=== PATIENT | female | born 1995 | race Caucasian/White ===

== ENCOUNTER 2024-02-13 14:41 | Emergency (ER) | payer MEDICAID, OTHER ==
[~2024-02-13] VITALS: Ht 154.9 cm; Wt 34.1 kg
[~2024-02-13 14:41] MED LIST: PHEN-786 PO
[2024-02-13 15:18] VITALS: BP 125/70; PULSE 87; RESP 15; TEMP 98.8; O2SAT 100
== END 2024-02-13 16:01 | disposition left against medical advice (07) ==
LOC: ER 14:42
DX: Z32.01 Encounter for pregnancy test, result positive (principal); Z53.21 Procedure and treatment not carried out due to patient leaving prior to being seen by health care provider
CPT/HCPCS: 99281

== ENCOUNTER 2024-04-27 23:59 | Emergency (ER) | payer MEDICAID ==
[~2024-04-27] VITALS: Ht 154.9 cm; Wt 36.4 kg
[2024-04-28] MEDS ORDERED: HYDROcodone/acetaminophen 5mg/325mg tablet PO ONE (01:25)
[2024-04-28] MEDS: acetaminophen 325mg tablet PO ONE (01:50)
[2024-04-28 02:26] VITALS: BP 105/68; PULSE 86; RESP 16; TEMP 98; O2SAT 99
== END 2024-04-28 02:29 | disposition home or self-care (01) ==
LOC: ER 23:59
DX: S00.83XA Contusion of other part of head, initial encounter (principal); R04.0 Epistaxis; Z79.899 Other long term (current) drug therapy; Y08.89XA Assault by other specified means, initial encounter; Y93.89 Activity, other specified; Y92.89 Other specified places as the place of occurrence of the external cause; Y99.8 Other external cause status
CPT/HCPCS: 70450; 99284

== ENCOUNTER 2025-01-04 06:52 | Emergency (ER) | payer MEDICAID ==
[~2025-01-04] VITALS: Ht 154.9 cm; Wt 38.6 kg
[2025-01-04] MEDS ORDERED: CefTRIAXone 2gm/NS 100ml IVPB 50 ML IV ONE (07:05)
[2025-01-04 08:20] LABS: MEAN CORPUSCULAR HGB CONC 34.2 g/dL (33.0-36.5); NEUTROPHILS % (AUTO) 81.6 % (42-75); RED BLOOD COUNT 4.14 X10'6 (4.20-5.60)
[2025-01-04 08:23] LABS: BASOPHILS % (AUTO) 0.2 % (0-1); EOSINOPHILS % (AUTO) 0 % (0-6); HEMATOCRIT 35.7 % (35.0-45.0); HEMOGLOBIN 12.2 g/dl (12.0-16.0); LYMPHOCYTES # (AUTO) 1.2 X10'3 (1.1-4.8); LYMPHOCYTES % (AUTO) 5.6 % (21-51); MEAN CORPUSCULAR HEMOGLOBIN 29.5 PG (27.0-31.0); MEAN CORPUSCULAR VOLUME 86.2 FL (78-98); MEAN PLATELET VOLUME 7.3 FL (7.4-10.4); MONOCYTES # (AUTO) 2.6 X10'3 (0-0.9); MONOCYTES % (AUTO) 12.6 % (2-12); NEUTROPHILS # (AUTO) 17.1 X10'3 (1.8-7.7); PLATELET COUNT 283 X10'3 (140-440); RED CELL DISTRIBUTION WIDTH 13.7 % (11.5-14.5); WHITE BLOOD COUNT 20.9 X10'3 (4.5-11.0)
[2025-01-04 08:33] LABS: BILIRUBIN,URINE NEGATIVE (Neg); CLARITY,URINE CLEAR (Clear); COLOR,URINE YELLOW (Yellow); GLUCOSE, URINE NEGATIVE (Neg); KETONES,URINE 40 mg/dl (Neg); LEUKOCYTE ESTERASE ,URINE NEGATIVE (Neg); NITRITES, URINE NEGATIVE (Neg); OCCULT BLOOD,URINE TRACE-INTACT (Neg); PROTEIN,URINE TRACE mg/dl (Neg); UROBILINOGEN,URINE 0.2 E.U/dL (0.2-1.0)
[2025-01-04] MEDS: CefTRIAXone 2gm/D5W 50ml BAG 50 ML IV ONE (08:43)
[2025-01-04] MEDS: normal saline 1000ML IV soln IVB ONE (08:43)
[2025-01-04 08:48] LABS: ALANINE AMINOTRANSFERASE 14 U/L (12-78); ALBUMIN 3.1 G/DL (3.4-5.0); ALBUMIN/GLOBULIN RATIO 0.7 (1.1-1.5); ALKALINE PHOSPHATASE 79 IU/L (46-116); ANION GAP 12 (8-16); ASPARTATE AMINO TRANSFERASE 14 U/L (10-37); BILIRUBIN,TOTAL 0.9 MG/DL (0.1-1.0); BLOOD UREA NITROGEN 9 MG/DL (7-18); BUN/CREATININE RATIO 10.5 (10.0-20.0); C-REACTIVE PROTEIN 14.27 MG/DL (0.0-0.5); CALCIUM 8.9 MG/DL (8.5-10.1); CHLORIDE 92 MMOL/L (99-107); CREATININE 0.86 MG/DL (0.40-0.90); GLUCOSE 116 MG/DL (70-104); LIPASE 16 U/L (16-77); MAGNESIUM 1.5 MG/DL (1.5-2.4); SODIUM 134 MMOL/L (135-145); TOTAL CARBON DIOXIDE 29.8 MMOL/L (24-32); TOTAL PROTEIN 7.4 G/DL (6.4-8.2); eCRCL 60 ML/MIN; eGFR 79 ML/MIN
[2025-01-04 08:56] LABS: POTASSIUM 2.7 MMOL/L (3.5-5.1)
[2025-01-04 08:58] LABS: UA COLLECTION TYPE CLN CATCH MIDSTREAM
[2025-01-04 08:59] LABS: BACTERIA,URINE 3+ /HPF (Neg); MUCUS STRANDS MODERATE /LPF (Neg); SQUAMOUS EPITHELIAL CELL,UR MODERATE /LPF (FEW); WBC,URINE 20-30 /HPF (0-4)
[2025-01-04 09:00] LABS: WBC CLUMPS,URINE FEW /HPF (NEGATIVE)
[2025-01-04] MEDS: morphine 4 MG/ML inj SYRINge IV ONE (10:07)
[2025-01-04] MEDS: ondansetron/PF 4mg/2ml inj IV ONE (10:07)
[2025-01-04] MEDS: magnesium sulf-water 2g/50mL 50 ML IV ONE (10:08)
[2025-01-04] MEDS: normal saline 1000ml 1,000 ML IV ONE (10:08)
[2025-01-04] MEDS: POTASSIUM BICARB 20meq eff tab 20 MEQ TABLET.EFF PO ONE ×2 (10:19→12:19)
[2025-01-04] MEDS: potassium bicarbonate/cit acid 25mEq tablet.effervescent PO ONE (10:30)
[2025-01-04 11:23] LABS: URINE HCG NEGATIVE (NEG)
[2025-01-04 11:30] LABS: URINE AMPHETAMINE SCREEN NEGATIVE (Neg); URINE BARBITUATE SCREEN NEGATIVE (Neg); URINE BENZODIAZEPINES SCREEN NEGATIVE (Neg); URINE CANNABINOID SCREEN POSITIVE (Neg); URINE COCAINE SCREEN NEGATIVE (Neg); URINE METHADONE SCREEN NEGATIVE (Neg); URINE OPIATE SCREEN NEGATIVE (Neg); URINE PHENCYCLIDINE SCREEN NEGATIVE (Neg)
[2025-01-04] MEDS: proCHLORperazine 10 MG/2 ml inj IV ONE (11:42)
[2025-01-04] MEDS: acetaminophen 1,000mg/100ml IV 100 ML IV SCH (11:42)
[2025-01-04] MEDS ORDERED: iohexol 300mg/ml 100ml inj. ONE (12:51)
[2025-01-04 13:37] VITALS: TEMP 99
[2025-01-04] MEDS: ringers solution, lacted 1,000 ML IV ONE (13:45)
[2025-01-04 13:47] LABS: ALBUMIN 2.4 G/DL (3.4-5.0); ANION GAP 3 (8-16); BLOOD UREA NITROGEN 8 MG/DL (7-18); BUN/CREATININE RATIO 9.9 (10.0-20.0); CALCIUM 7.5 MG/DL (8.5-10.1); CHLORIDE 94 MMOL/L (99-107); CREATININE 0.81 MG/DL (0.40-0.90); GLUCOSE 113 MG/DL (70-104); POTASSIUM 4.1 MMOL/L (3.5-5.1); SODIUM 129 MMOL/L (135-145); TOTAL CARBON DIOXIDE 32.5 MMOL/L (24-32); eCRCL 64 ML/MIN; eGFR 85 ML/MIN
[2025-01-04] MEDS ORDERED: CEFP100S9 PO (14:17)
[2025-01-04 14:36] VITALS: BP 101/64; PULSE 88; RESP 16; O2SAT 98
== END 2025-01-04 14:48 | disposition home or self-care (01) ==
LOC: ER 06:53
DX: N12 Tubulo-interstitial nephritis, not specified as acute or chronic (principal); R10.31 Right lower quadrant pain; Z87.440 Personal history of urinary (tract) infections
CPT/HCPCS: 36415; 74177; 80048; 80053; 80305; 81001; 81025; 83690; 83735; 85025; 86140; 87077; 87088; 87186; 96361; 96365; 96366; 96368; 96375; 99285; J0131; J0696; J0780; J2270; J2405; J7030; J7120; Q9967; A4615

== ENCOUNTER 2025-02-14 14:46 | Emergency (ER) | payer MEDICAID ==
[~2025-02-14] VITALS: Ht 154.9 cm; Wt 33.9 kg
[~2025-02-14 14:46] MED LIST changes: +CEFP100S9 PO
[2025-02-14 14:50] VITALS: BP 119/79; PULSE 83; RESP 15; O2SAT 100
[2025-02-14 16:24] VITALS: TEMP 99.2
== END 2025-02-14 16:25 | disposition home or self-care (01) ==
LOC: ER 14:47
DX: Z34.01 Encounter for supervision of normal first pregnancy, first trimester (principal); Z79.899 Other long term (current) drug therapy; Z87.442 Personal history of urinary calculi
CPT/HCPCS: 36415; 84702; 99283

== ENCOUNTER 2025-03-29 17:41 | Emergency (ER) | payer MEDICAID ==
[~2025-03-29] VITALS: Ht 154.9 cm; Wt 37.4 kg
[2025-03-29 17:46] VITALS: BP 117/79; PULSE 93; RESP 20; O2SAT 97
--- NOTE | 2025-03-29 18:44 | Physician Documentation ---
History of Present Illness ~ Chief Complaint: Nausea Stated Complaint: COMPLICATIONS Time Seen by MD: 18:44 Primary Medical Doctor: NONE HPI 29-year-old female, 10 weeks presenting with nausea and vomiting She tells me that she has a history of hyperemesis gravidarum with previous pregnancies. In the past, the only medication that help with Zofran. She has been having a lot of morning sickness and nausea. For the past 48 hours she has been having nausea and vomiting and has not been able to keep down much food or fluids. She is not making as much urine as normal. She denies any fevers, chills, abdominal pain, pelvic cramping, vaginal bleeding, dysuria, or any other infectious symptoms. Her only request is for some Zofran. Medication Reconciliation Allergies: Coded Allergies: No Known Allergies (Unverified , 01/04/25) Scheduled Cefpodoxime Proxetil (Cefpodoxime Proxetil), 1 TAB PO Q12H Scheduled PRN ONDANSETRON ODT 4mg tablet (Ondansetron Odt), 1 TAB PO Q6H PRN PRN for nausea/vomiting Phenazopyridine Hcl (Pyridium tablet), 1 TAB PO Q8H PRN for pain Past Medical History Past Medical History: No Pertinent History, Kidney Stones, UTI Past Surgical History: no surgical history Alcohol Use: None Drug Use: none Lives In: Home Review of Systems Constitutional: Denies: fever Gastrointestinal: Reports: nausea, vomiting; Denies: abdominal pain Physical Exam Vital Signs: Temperature: 98.4, Source: Oral, Heart Rate: 93, Respiratory Rate: 20, BP: 117/79, Pulse Oximetry: 97, Weight: 37.400 Oxygen Flow Rate: 0 Physical Exam General: This is a pleasant and well-appearing thin young woman lying in bed, no vomiting during my exam, child at bedside HEENT: Atraumatic, oropharynx appears dry Heart: Mild tachycardic, appears regular Lungs: normal work of breathing, normal oxygen saturation on room air Abdomen: Soft, nondistended, nontender all quadrants including in the suprapubic region Neuro: Alert and oriented, no focal deficits Psychiatric: Calm and cooperative with exam Progress Results/Orders Results/Orders Completed Orders - ZAHRA HUMPHREY MD Ondansetron Disint. Tablet (Zofran Odt T (03/29/25 18:50) Vital Signs 03/29/25 17:46 Temp 98.4 Pulse 93 Resp 20 B/P (MAP) 117/79 Pulse Ox 97 O2 Flow Rate 0 Medical Decision Making Additional info obtained from: old records Findings I reviewed fast ER visits, the patient has been seen in the past for abdominal pain and vomiting Additional Comments Differential includes nausea and early , complication, UTI, dehydration, electrolyte derangement, ectopic , viral syndrome Assessment 29-year-old female, 10 weeks presenting with nausea and vomiting. Here in the ED she is well-appearing, no vomiting during my exam. She has a benign abdominal exam. No abdominal pain or vaginal bleeding to suggest or threatened . No fever infectious type symptoms. No urinary symptoms. She does appear clinically mildly dehydrated. I did offer to do an IV and labs and give her IV fluids for hydration, but she declined. Her only request is for Zofran. We discussed options for nausea and early . After this discussion and shared decision-making, she would like to just go home with a prescription for Zofran and ongoing outpatient follow up. She will return if she has worsening symptoms. Departure Time of Disposition: 18:52 Disposition: 01 HOME / SELF CARE / HOMELESS Impression: Primary Impression: Nausea and vomiting in Condition: Stable Discharge Instructions: ABCs of Referrals: NO PRIMARY CARE PROVIDER (PCP) Prescriptions ONDANSETRON ODT 4mg tablet (ONDANSETRON ODT) 4 Mg Tab.rapdis 1 TAB PO Q6H PRN PRN for nausea/vomiting for 7 Days, #28 TAB 1 Refill Prov: ZAHRA HUMPHREY MD 03/29/25 Signature Scribe Signature: dar Attestation: ZAHRA Levin MD March 29, 2025 18:44
[2025-03-29] MEDS ORDERED: ONDA-243 PO (18:53)
[2025-03-29] MEDS: ondansetron 4mg rapidly disintigrating tab PO ONE (19:34)
[2025-03-29 19:42] VITALS: TEMP 98.4
== END 2025-03-29 19:43 | disposition home or self-care (01) ==
LOC: ER 17:42
DX: O21.8 Other vomiting complicating pregnancy (principal); Z79.899 Other long term (current) drug therapy; Z3A.10 10 weeks gestation of pregnancy
CPT/HCPCS: 99283